=== PATIENT | male | born 1970 | race Caucasian/White ===

== ENCOUNTER 2020-05-10 09:09 | Emergency (ER) | payer OTHER ==
[~2020-05-10] VITALS: Ht 177.8 cm; Wt 109.1 kg
[2020-05-10 09:13] VITALS: BP 145/88; PULSE 85; TEMP 99
== END 2020-05-10 09:55 | disposition home or self-care (01) ==
LOC: COL.ER 09:09
DX: S49.92XA Unspecified injury of left shoulder and upper arm, initial encounter (principal); X50.1XXA Overexertion from prolonged static or awkward postures, initial encounter